=== PATIENT | male | born 2000 | race Caucasian/White ===

== ENCOUNTER 2018-09-19 21:12 | Emergency (ER) | payer SELFPAY ==
[~2018-09-19] VITALS: Ht 172.7 cm; Wt 82.0 kg
[2018-09-19 21:50] VITALS: BP 124/85
[2018-09-19] MEDS ORDERED: LIDOCAINE HCL 1% 20ML VIAL (Pyxis) INJ INFIL ONE (23:15)
[2018-09-19] MEDS ORDERED: BACITRACIN ZINC OINT UDPKT TOP ONE (23:15)
== END 2018-09-20 03:23 | disposition home or self-care (01) ==
LOC: ER 23:37
DX: S61.012A Laceration without foreign body of left thumb without damage to nail, initial encounter (principal); W26.0XXA Contact with knife, initial encounter; Y93.89 Activity, other specified; Y92.89 Other specified places as the place of occurrence of the external cause; Y99.8 Other external cause status; Z90.89 Acquired absence of other organs
CPT/HCPCS: 12001; 99283; J3490